=== PATIENT | male | born 1960 | race American Indian/Alaskan Native ===

== ENCOUNTER 2017-10-25 09:28 | Emergency (ER) | payer MEDICAID, OTHER ==
[2017-10-25 09:45] VITALS: BP 150/87
[2017-10-25] MEDS ORDERED: TYLENOL PO ONE (09:46)
[2017-10-25 10:26] LABS: Basophils % (Auto) 0.6 % (0.0-1.8); Eosinophils % (Auto) 0.1 % (0.0-4.3); Hematocrit 33.2 % (35.5-45.6); Hemoglobin 11.2 gm/dl (11.8-15.2); Lymphocytes # (Auto) 0.9 K/mm3 (1.2-5.4); Lymphocytes % (Auto) 12.5 % (13.4-35.0); Mean Corpuscular HGB Conc 34 % (32-34); Mean Corpuscular Hemoglobin 34 pg (28-32); Mean Corpuscular Volume 101 fl (84-94); Monocytes # (Auto) 0.5 K/mm3 (0.0-0.8); Monocytes % (Auto) 7.3 % (0.0-7.3); Platelet Count 238 K/mm3 (140-440); Red Cell Distribution Width 14.1 % (13.2-15.2)
--- NOTE | 2017-10-25 10:36 | XRay Report ---
Chest 2 views: History: Shortness of breath. Findings: Borderline cardiomegaly. Trachea is midline. No consolidation, pneumothorax or pleural effusion. Impression: Cardiomegaly. No acute lung changes.
[2017-10-25 10:43] LABS: Calcium 9.8 mg/dL (8.4-10.2)
== END 2017-10-25 22:57 | disposition left against medical advice (07) ==
LOC: ED 09:28
DX: J00 Acute nasopharyngitis [common cold] (principal); Z53.21 Procedure and treatment not carried out due to patient leaving prior to being seen by health care provider
CPT/HCPCS: 36415; 71046; 80048; 85025; 87040; 93005; 93010